=== PATIENT | female | born 1985 | race Hispanic/Latino ===

== ENCOUNTER 2017-02-24 08:38 | Emergency (ER) | payer SELFPAY ==
[2017-02-24 09:07] LABS: Bilirubin Negative (Negative); Blood, Urine Negative (Negative); Glucose, Urine (Dipstick) Negative (Negative); Ketone, Urine Negative (Negative); Nitrite Negative (Negative); Protein, Urine (Dipstick) Negative (Neg-Trace); Urobilinogen 0.2 mg/dL (0.2-1.0)
[2017-02-24] MEDS ORDERED: Ondansetron HCl/PF 4 MG/2 ML Vial ONE (09:12)
[2017-02-24 09:28] LABS: Hematocrit 42.3 % (36.0-47.0); Red Blood Cell (RBC) Count 4.87 mill/uL (4.20-5.40); White Blood Cell (WBC) Count 8.1 thou/uL (4.8-10.8)
[2017-02-24 09:29] LABS: #Eosinphils 0.1 thou/uL (0.0-0.7); #Lymphocytes 1.7 thou/uL (1.20-3.40); #Monocytes 0.5 thou/uL (0.11-0.59); #Neutrophils 5.8 thou/uL (1.40-6.50); %Basophils 0.4 % (0.0-1.0); %Eosinophils 1.2 % (0.0-10.0); %Lymphocytes 20.7 % (21.0-51.0); %Monocytes 6.5 % (0.0-10.0); Mean Platelet Volume 7.3 fL (7.4-10.4)
[2017-02-24 10:05] LABS: Anion Gap 12 mmol/L (10-20); BUN (Urea Nitrogen) 9 mg/dL (7.0-18.7); Calc. Creatinine Clearance 0 mL/min (70-130); Carbon Dioxide 23 mmol/L (22-29); Chloride 107 mmol/L (98-107); Estimated GFR-MDRD Greater than 90
[2017-02-24 10:06] LABS: Calcium 9.6 mg/dL (7.8-10.44)
[2017-02-24 10:19] LABS: ALT (SGPT) 138 U/L (8-55); AST (SGOT) 85 U/L (5-34); Alkaline Phosphatase 102 U/L (40-150); Bilirubin, Direct 0.3 mg/dL (0.1-0.3); Bilirubin, Total 0.6 mg/dL (0.2-1.2); Protein, Total 8.1 g/dL (6.0-8.3)
== END 2017-02-24 11:05 | disposition home or self-care (01) ==
LOC: ERS 08:38
DX: R10.9 Unspecified abdominal pain (principal); R11.2 Nausea with vomiting, unspecified; R19.7 Diarrhea, unspecified
CPT/HCPCS: 80048; 80076; 81003; 81015; 84703; 85025; 96361; 96374; J2405

== ENCOUNTER 2017-06-26 10:56 | Emergency (ER) | payer SELFPAY ==
[2017-06-26] MEDS ORDERED: Ibuprofen 200 MG TAB ONE (11:57)
--- NOTE | 2017-06-26 14:36 | RAD ---
THREE VIEWS RIGHT FIFTH TOE: History: Pain. Stubbed toe yesterday. FINDINGS: AP, lateral, and oblique views right fifth toe obtained. No evidence of fractures, subluxations or bony lesions seen. IMPRESSION: Normal three views right fifth toe. POS: [facility]
== END 2017-06-26 14:57 | disposition home or self-care (01) ==
LOC: ERS 10:56
DX: S90.121A Contusion of right lesser toe(s) without damage to nail, initial encounter (principal); W22.8XXA Striking against or struck by other objects, initial encounter

== ENCOUNTER 2018-09-20 14:25 | Outpatient (CLI) | payer BC ==
--- NOTE | 2018-09-20 15:23 | ULT ---
Pelvic ultrasound. HISTORY: History of pelvic cysts. Multiple longitudinal and transverse images of the pelvis is obtained using multi hertz curvilinear t ransabdominal as well as multi hertz endovaginal transducers. Real-time, color flow and spectral waveform Doppler analysis demonstrates the uterus to measure 7.4 x 3.8 x 4.4 cm. The endometrium is o f normal thickness measuring 4 mm. An intrauterine device is in place. Both ovaries visualized with good blood flow. Right ovary measures 2.7 x 3.8 x 2.7 cm and the left ovary to measure 3.2 x 2.2 x 3.1 cm. No evidence of ovarian masses or lesions seen. Nabothian cysts seen in the region of the cervix. IMPRESSION: No evidence of significant uterine or ovarian masses or lesions. Transcribed Date/Time: 09/20/2018 3:43 PM
== END 2018-09-20 14:26 | disposition home or self-care (01) ==
LOC: BICULT 14:25
PROVIDERS: ATTEND Nurse Practitioner Women's Health
DX: Z01.419 Encounter for gynecological examination (general) (routine) without abnormal findings (principal)
CPT/HCPCS: 76856

== ENCOUNTER 2020-09-26 09:56 | Emergency (ER) | payer BC ==
[2020-09-26 10:38] LABS: #Lymphocytes 1.1 thou/uL (1.20-3.40); #Monocytes 0.3 thou/uL (0.11-0.59); %Eosinophils 0.1 % (0.0-10.0); %Lymphocytes 10.5 % (21.0-51.0); %Monocytes 3.2 % (0.0-10.0); %Neutrophils 86.2 % (42.0-75.0); Hemoglobin 14.7 g/dL (12.0-16.0); Mean Corpuscular HGB CONC 33.5 g/dL (32.0-36.0); Mean Corpuscular Hemoglobin 30.6 pg (27.0-31.0); Mean Corpuscular Volume 91.3 fL (78.0-98.0); Mean Platelet Volume 7.9 fL (7.4-10.4); Platelet Count 305 thou/uL (130-400); RBC Distribution Width 12.2 % (11.5-14.5); Red Blood Cell (RBC) Count 4.81 mill/uL (4.20-5.40); White Blood Cell (WBC) Count 10.4 thou/uL (4.8-10.8)
[2020-09-26 10:40] LABS: Bilirubin Negative (Negative); Blood, Urine Negative (Negative); Clarity Clear (Clear); Glucose, Urine (Dipstick) Normal (Negative); Ketone, Urine Negative (Negative); Leukocyte 250 Leu/uL (Negative); Nitrite Negative (Negative); Protein, Urine (Dipstick) 10 mg/dL (Neg-Trace); RBC/HPF 0-3 HPF (0-3); Specific Gravity, Urine 1.019 (1.002-1.036); Urobilinogen Normal mg/dL (Less than 2); pH, Urine 5.5 (5.0-9.0)
[2020-09-26 10:42] LABS: Bacteria/HPF 1+ HPF (None Seen)
[2020-09-26 10:49] LABS: Pregnancy Test - Urine (BHCG) Negative (Negative); Pregu Control Background? CLEAR/WHITE (CLR/WHITE); Pregu Control Bar Appear? YES (CONTROL BAR); Specific Gravity 1.019 (1.002-1.036)
[2020-09-26] MEDS ORDERED: Morphine 4 MG/ML VIAL ONE (10:56)
[2020-09-26 10:59] LABS: ALT (SGPT) 74 U/L (8-55); AST (SGOT) 44 U/L (5-34); Albumin 4.6 g/dL (3.5-5.0); Alkaline Phosphatase 84 U/L (40-110); Anion Gap 11 mmol/L (10-20); BUN (Urea Nitrogen) 6 mg/dL (7.0-18.7); Bilirubin, Total 0.7 mg/dL (0.2-1.2); Calc. Creatinine Clearance 0 mL/min (70-130); Calcium 9.5 mg/dL (7.8-10.44); Carbon Dioxide 23 mmol/L (22-29); Chloride 106 mmol/L (98-107); Globulin 3.8 g/dL (2.4-3.5); Glucose 183 mg/dL (70-105); Lipase 29 U/L (8-78); Potassium 3.7 mmol/L (3.5-5.1); Protein, Total 8.4 g/dL (6.0-8.3); Sodium 136 mmol/L (136-145)
== END 2020-09-26 12:13 | disposition home or self-care (01) ==
LOC: ERS 09:56
DX: R10.31 Right lower quadrant pain (principal); R10.32 Left lower quadrant pain; R19.7 Diarrhea, unspecified; R10.817 Generalized abdominal tenderness
CPT/HCPCS: 74177; 80053; 81003; 81015; 81025; 83690; 85025; 93005; 96374; J2270

== ENCOUNTER 2022-10-22 15:41 | Emergency (ER) | payer BC, SELFPAY ==
[2022-10-22] MEDS ORDERED: Ibuprofen 800 MG TAB ONE (16:01)
[2022-10-22 16:43] LABS: SARS-CoV-2 NAA Rapid Test Not Detected (NotDetected)
[2022-10-22] MEDS ORDERED: Dexameth. Sod Phosp. 10 MG/ML (CHEMO USE ONLY) ONE (16:57)
== END 2022-10-22 17:14 | disposition home or self-care (01) ==
LOC: ERS 15:41
DX: B34.9 Viral infection, unspecified (principal); Z20.822 Contact with and (suspected) exposure to COVID-19
CPT/HCPCS: 71045; 96372; J1100

== ENCOUNTER 2024-11-19 07:58 | Emergency (ER) | payer SELFPAY | END 2024-11-19 08:47 | disposition home or self-care (01) | LOC: ERS 07:58 | DX: M54.41 Lumbago with sciatica, right side (principal); E11.9 Type 2 diabetes mellitus without complications; Z79.84 Long term (current) use of oral hypoglycemic drugs | CPT/HCPCS: 99283; J2270 ==